=== PATIENT | male | born 1960 | race Caucasian/White ===

== ENCOUNTER → 2017-04-05 | Outpatient (CLI) | payer OTHER ==
[~2017-04-05] MED LIST: ASPI-650 PO; DIGO125T PO; ERGO500017 PO; LISI-167 PO; METF500T PO; METO-99 PO
== END | disposition home or self-care (01) ==
LOC: CFH 15:32
PROVIDERS: ATTEND Nurse Practitioner
DX: M54.16 Radiculopathy, lumbar region (principal)
CPT/HCPCS: 72100

== ENCOUNTER → 2017-04-19 | Outpatient (CLI) | payer OTHER | END | disposition home or self-care (01) | LOC: RAD 14:01 | PROVIDERS: ATTEND Nurse Practitioner | DX: M48.06 Spinal stenosis, lumbar region (principal); M48.07 Spinal stenosis, lumbosacral region; M51.27 Other intervertebral disc displacement, lumbosacral region; M51.26 Other intervertebral disc displacement, lumbar region; M51.25 Other intervertebral disc displacement, thoracolumbar region; M25.78 Osteophyte, vertebrae | CPT/HCPCS: 72148 ==

== ENCOUNTER 2017-06-01 12:47 | Inpatient (IN) | payer OTHER ==
[2017-05-30 16:09] LABS: HEMATOCRIT 51.8 % (39.2-51.8); WHITE BLOOD COUNT 11.1 x10^3/uL (3.4-10)
[~2017-06-01] VITALS: Ht 180.3 cm; Wt 158.3 kg
[~2017-06-01 12:47] MED LIST changes: +BACITRACIN 50,000 UNIT ONE; +BUPIVACAINE 0.25% ONE; +BUPIVACAINE/PF 0.5% ONE; +CYCL-259 PO; +DAPA1TAB3 PO; +EPINEPHRINE 1 MG/ML, 1ML ONE; +GABA300C10 PO; +LIRA0.6P SQ; +METH4TAB6 PO; +METO-95 PO; +PIOG30TA4 PO; +THROMBIN 5,000 UNIT VIAL TP ONE; +TRAM50TA2 PO
[2017-06-01] MEDS ORDERED: LACTATED RINGERS 1,000 ML IV SCH (13:05)
[2017-06-01 13:30] VITALS: BP 131/85
[2017-06-01] MEDS ORDERED: VANCOMYCIN 1,000 MG ONE (13:40)
[2017-06-01] MEDS ORDERED: BUPIVACAINE/PF 0.5% ONE (13:40)
[2017-06-01] MEDS ORDERED: FENTANYL PF 100 MCG/2ML ONE ×3 (13:51→19:05)
[2017-06-01] MEDS ORDERED: MIDAZOLAM 1 MG/ML, 2ML ONE (13:51)
[2017-06-01] MEDS ORDERED: PROPOFOL 150 ML ONE (15:54)
[2017-06-01] MEDS ORDERED: ONDANSETRON 2MG/ML, 2ML ONE (15:59)
[2017-06-01] MEDS ORDERED: CEFAZOLIN 1,000 MG ONE (15:59)
[2017-06-01] MEDS ORDERED: DEXAMETHASONE 4 MG/ML, 5ML ONE (15:59)
[2017-06-01] MEDS ORDERED: DIAZEPAM 5 MG/ML, 2ML IVPush PRN (17:00)
[2017-06-01] MEDS ORDERED: HYDROmorphone 1 MG/ML, 1ML IV PRN (17:00)
[2017-06-01] MEDS ORDERED: MEPERIDINE/PF 25MG/0.5ML IVPush PRN (17:00)
[2017-06-01] MEDS ORDERED: ACETAMINOPHEN 325 MG TABLET PO PRN (17:00)
[2017-06-01] MEDS ORDERED: OXYcodone 5 MG/5 ML ORAL.SOL UDC PO PRN (17:00)
[2017-06-01] MEDS ORDERED: hydrALAzine 20 MG/ML, 1ML IV PRN (17:00)
[2017-06-01] MEDS ORDERED: FENTANYL PF 100 MCG/2ML IV PRN (17:00)
[2017-06-01] MEDS ORDERED: ONDANSETRON 2MG/ML, 2ML IVPush PRN ×2 (17:00→19:00)
[2017-06-01] MEDS ORDERED: LABETALOL 5MG/ML, 20ML IV PRN (17:00)
[2017-06-01] MEDS ORDERED: PROMETHAZINE 25 MG/ML, 1ML IV PRN (17:00)
[2017-06-01] MEDS ORDERED: HYDROmorphone 2 MG/ML, 1ML ONE (17:57)
[2017-06-01] MEDS ORDERED: LABETALOL 5MG/ML, 20ML ONE (18:34)
[2017-06-01] MEDS ORDERED: BISACODYL 10 MG SUPP PR PRN (19:00)
[2017-06-01] MEDS ORDERED: HYDROmorphone 1 MG/ML, 1ML IVPush PRN (19:00)
[2017-06-01] MEDS ORDERED: DIPHENHYDRAMINE 50 MG/ML, 1ML IVPush PRN (19:00)
[2017-06-01] MEDS ORDERED: PROMETHAZINE 25 MG/ML, 1ML IM PRN (19:00)
[2017-06-01] MEDS ORDERED: INSULIN REGULAR 100 UNITS/ML, 3ML VIAL SQ-INSULIN PRN (19:00)
[2017-06-01] MEDS ORDERED: DIPHENHYDRAMINE 50 MG CAPSULE PO PRN (19:00)
[2017-06-01] MEDS ORDERED: MAGNESIUM HYDROXIDE 8%, 30ML UDC PO PRN (19:00)
[2017-06-01] MEDS ORDERED: PHARMACY MAY ADJ FOR RENAL FX MC PRN (19:00)
[2017-06-01] MEDS ORDERED: ACETAMINOPHEN 650 MG SUPP PR PRN (19:00)
[2017-06-01] MEDS ORDERED: LABETALOL 5MG/ML, 20ML IVPush PRN (19:00)
[2017-06-01] MEDS ORDERED: CYCLOBENZAPRINE 10 MG TABLET PO PRN (19:00)
[2017-06-01] MEDS ORDERED: HYDROcodone/APAP 5/325 TABLET PO PRN (19:00)
[2017-06-01] MEDS ORDERED: SENNA/DOCUSATE TABLET PO PRN (19:00)
[2017-06-01] MEDS ORDERED: ACETAMINOPHEN 650 MG/20.3 ML UDC ONE (19:04)
[2017-06-01] MEDS ORDERED: CYCLOBENZAPRINE 10 MG TABLET ONE (19:05)
[2017-06-01] MEDS ORDERED: OXYcodone 5 MG/5 ML ORAL.SOL UDC ONE (19:05)
[2017-06-01] MEDS ORDERED: METOPROLOL 1 MG/ML, 5ML ONE (19:49)
[2017-06-01] MEDS ORDERED: METOPROLOL 1 MG/ML, 5ML IVPush ONE (20:00)
[2017-06-01] MEDS: SODIUM CHLORIDE FLUSH 10ML SYR IVF SCH (21:44)
[2017-06-01] MEDS: GABAPENTIN 300 MG CAPSULE PO SCH (21:55)
[2017-06-01] MEDS: metFORMIN 500 MG TABLET PO SCH (23:08)
[2017-06-01] MEDS: D5%-0.9% NACL+KCL 20MEQ 1,000 ML IV SCH (23:09)
[2017-06-01] MEDS: OXYcodone/APAP 5/325MG TABLET PO PRN ×2 (23:17→23:50)
[2017-06-01] MEDS: CEFAZOLIN PMX 1GM/50ML 50 ML IVPB SCH (23:50)
[2017-06-01 23:51] VITALS: BP 129/73
[2017-06-02 03:56] VITALS: BP 125/75
[2017-06-02] MEDS: OXYcodone/APAP 5/325MG TABLET PO PRN ×3 (04:07→12:23)
[2017-06-02] MEDS: INSULIN REGULAR 100 UNITS/ML, 3ML VIAL SQ-INSULIN SCH ×2 (06:06→11:00)
[2017-06-02 06:21] LABS: BLOOD UREA NITROGEN 12 mg/dL (7-18)
[2017-06-02 07:29] VITALS: BP 98/59
[2017-06-02] MEDS: CEFAZOLIN PMX 1GM/50ML 50 ML IVPB SCH (07:55)
[2017-06-02 08:11] VITALS: BP 126/80
[2017-06-02] MEDS: GABAPENTIN 300 MG CAPSULE PO SCH (08:13)
[2017-06-02] MEDS: metFORMIN 500 MG TABLET PO SCH (08:13)
[2017-06-02] MEDS: SODIUM CHLORIDE FLUSH 10ML SYR IVF SCH (08:15)
[2017-06-02] MEDS ORDERED: ENOXAPARIN 30 MG/0.3 ML SQ SCH (09:00)
[2017-06-02] MEDS ORDERED: METOPROLOL SUCCINATE 100 MG TAB.ER.24H PO SCH (09:00)
[2017-06-02] MEDS ORDERED: PIOGLITAZONE 15 MG TABLET PO SCH (09:00)
[2017-06-02] MEDS ORDERED: LISINOPRIL 10 MG TABLET PO SCH (09:00)
[2017-06-02] MEDS ORDERED: DAPAGLIFLOZIN PO SCH (09:00)
[2017-06-02] MEDS ORDERED: METFORMIN HCL PO SCH (09:00)
[2017-06-02] MEDS ORDERED: LIRAGLUTIDE 18 MG SQ SCH (09:00)
[2017-06-02] MEDS: D5%-0.9% NACL+KCL 20MEQ 1,000 ML IV SCH (10:00)
[2017-06-02] MEDS ORDERED: HYDR-3245 PO (11:46)
[2017-06-02] MEDS ORDERED: METH750T2 PO (11:47)
== END 2017-06-02 12:35 | disposition home or self-care (01) | DRG 516 ==
LOC: ORIP 12:47 → 4NOR 20:35
PROVIDERS: ADMIT Neurological Surgery; ATTEND Neurological Surgery
PROC: 4A11X4G Monitoring of Peripheral Nervous Electrical Activity, Intraoperative, External Approach (ICD-10-PCS; 2017-06-01)
PROC: 01NB0ZZ Release Lumbar Nerve, Open Approach (ICD-10-PCS; principal; 2017-06-01 15:30)
DX: M48.061 Spinal stenosis, lumbar region without neurogenic claudication (principal); Z68.42 Body mass index [BMI] 45.0-49.9, adult; E66.01 Morbid (severe) obesity due to excess calories; E11.9 Type 2 diabetes mellitus without complications; M10.9 Gout, unspecified; R32 Unspecified urinary incontinence
CPT/HCPCS: 36415; 72100; 80048; 82040; 82962; 85025; C1729; J0171; J0690; J1100; J1170; J1650; J2250; J2405; J2704; J3010; J3370; J3490; J3480; J7120